=== PATIENT | female | born 1965 | race Caucasian/White ===

== ENCOUNTER 2020-07-29 16:38 | Emergency (ER) | payer MEDICARE, OTHER, SELFPAY ==
[2020-07-29 16:39] VITALS: BP 109/89; PULSE 98; RESP 18; TEMP 36.7; O2SAT 96; BMI 27.1
--- NOTE | 2020-07-29 16:46 | XRR_ITS ---
PROCEDURE INFORMATION: Exam: XR Left Wrist Exam date and time: 07/29/2020 5:21 PM Age: 54 years old Clinical indication: Injury or trauma; Fall; Initial encounter; Blunt trauma (contusions or hematomas); Wrist; Left; Injury date: 07/29/20 TECHNIQUE: Imaging protocol: XR Left wrist. Views: Frontal, lateral, and oblique views. COMPARISON: No relevant prior studies available. FINDINGS: Bones/joints: Mildly distracted, slightly medially displaced ulnar styloid fracture. Transverse fracture of the distal radial metaphysis, with longitudinal extensions into the central/dorsal articular surface, with maintenance of joint congruity. Posterior angulation, displacement and impaction of the dominant distal radial articular fragments. There is approximately 23 degrees of posterior angulation of the distal radial articular surface. Soft tissues: Soft tissue swelling. XR/XR wrist LT min 3V* [id number] IMPRESSION: 1. Comminuted intra-articular Colles fracture of the distal radius. 2. Acute ulnar styloid fracture.
--- NOTE | 2020-07-29 16:48 | W.ED.EXTPRO ---
Documented by User: RUIZ Cordero 07/30/20 06:55 HPI - Extremity Problem General: Chief complaint: Extremity Injury, Upper Stated complaint: WRIST PAIN, DEFORMITY Time Seen by Provider: 07/29/20 16:45 History of Present Illness: HPI Narrative: Patient arrived via ambulance with complaint of broken left arm.Leg pain patient to take Patient states that she had shot arm feels she is running backwards and fell backwards her arm extended felt a break to her left arm MD Complaint: extremity pain Onset (ago): minute(s) Pain Consistency: constant Location: left and upper extremity Severity scale (1-10): 6 Quality: aching Radiation: none Relieving factors: cold therapy and immobilization Exacerbating factors: range of motion Associated symptoms: Reports no associated symptoms; Deny chest pain, fever(s) or rash Review of Systems Const: Denies: fever(s), chills or body aches Eyes: Denies: change in vision or blurry vision ENMT: Denies: throat pain or nasal congestion Card: Denies: chest pain or dyspnea on exertion Resp: Denies: dyspnea, productive cough or non-productive cough GI: Denies: abdominal pain, nausea or vomiting Musc: Reports: extremity pain (Has obvious deformity to left wrist patient complains about pain from a fall today) Skin/Breast: Denies: rash Neuro: Denies: headache(s) Psych: Denies: anxiety or depression Adrián/Lymph: Denies: easy bruising PFS ED PFSH: Medical History Anxiety disorder GERD (gastroesophageal reflux disease) History of nodular lymphoma Seasonal allergies Surgical History History of appendectomy History of back surgery History of basal cell carcinoma excision Right side of the head at [facility] 2020 History of tubal ligation Family History Unknown Family history unknown She does not know any family history Social History Smoking and tobacco status: former smoker Second hand smoke exposure: No Smoking risk assessment/counseling performed?: No Alcohol intake: never Desire information about alcohol rehabilitation?: No Counseling given: No Desire information about substance/drug rehabilitation?: No Counseling given: No Caregiver/support person: No Lives independently: Yes Household members: spouse Marital status: Current occupational status: disabled History of recent travel: No Current gender identity: Female Physical Exam Const: COMMON NORMALS: no acute distress Neck/C-Spine: COMMON NORMALS: no JVD Cardio: COMMON NORMALS: no JVD, regular rate and regular rhythm RATE: regular rate RHYTHM: regular rhythm Extremity: LEFT UPPER EXTREMITY: Yes wrist (Patient has deformity to distal forearm left wrist area. Mild swelling noted neurovascular status intact.) Course Vital Signs: Vital signs: Vital Signs Temperature 98.1 F 07/29/20 16:39 Pulse Rate 73 07/29/20 19:33 Respiratory Rate 16 07/29/20 19:33 Blood Pressure 152/89 07/29/20 19:33 Pulse Oximetry 95 07/29/20 19:33 Discharge Plan Discharge Patient Disposition: Home Clinical Impression: Left wrist fracture Qualifiers: Encounter type: initial encounter Fracture type: closed Qualified Code(s): S62.102A - Fracture of unspecified carpal bone, left wrist, initial encounter for closed fracture Condition: Stable Prescriptions: No Action oxycodone-acetaminophen [Percocet] 5-325 mg tablet 1 tab PO Q4H PRN (Reason: pain) 7 Days Qty: 40 RF: 0 cannabis See Rx Instructions .ROUTE .COMPLEX PRN (Reason: Pain) RF: 0 ascorbic acid (vitamin C) [Vitamin C] 250 mg Tablet 250 mg PO BID RF: 0 turmeric 400 mg Capsule 400 mg PO DAILY RF: 0 Discharge Orders: Discharge Order (Routine); Ordered 07/29/20 Ordered By: Alejandro Saavedra Referrals: Bettina Pink, [facility]ATOR[facility] [Primary Care Provider] - Discharge Diet: Regular Discharge Activity: Limit activity as instructed Patient Instructions: Wrist Fracture in Adults (ED) Activity Restrictions/Additional Instructions: Follow-up with medical provider as directed. Case management should be contacting you in the next several days to set up an appointment with Orthopedic Doctor. take medications as prescribed. You can also take ibuprofen per bottle instructions in between doses of hydrocodone to help with pain. Keep splint on and dry. Limit activity with left arm. Return to the ER or your medical provider if condition worsens. Please read and understand discharge instructions. If any questions, please ask. Discharge Date/Time: 07/29/20 19:35 Coding Level of Care Code ED Veterinarian for Chg Fwd Exam Expanded Problem Focused Documented by User: TAMIA James 07/29/20 19:32 HPI - Extremity Problem General: Chief complaint: Extremity Injury, Upper Stated complaint: WRIST PAIN, DEFORMITY Time Seen by Provider: 07/29/20 16:45 PFSH ED PFSH: Medical History Anxiety disorder GERD (gastroesophageal reflux disease) History of nodular lymphoma Seasonal allergies Surgical History History of appendectomy History of back surgery History of basal cell carcinoma excision Right side of the head at [facility] 2020 History of tubal ligation Family History Unknown Family history unknown She does not know any family history Social History Smoking and tobacco status: former smoker Second hand smoke exposure: No Smoking risk assessment/counseling performed?: No Alcohol intake: never Desire information about alcohol rehabilitation?: No Counseling given: No Desire information about substance/drug rehabilitation?: No Counseling given: No Caregiver/support person: No Lives independently: Yes Household members: spouse Marital status: Current occupational status: disabled History of recent travel: No Current gender identity: Female Physical Exam Extremity: NARRATIVE EXTREMITY EXAM: Left wrist radial pulse 2+, cap refill normal and sensation to fingers intact. Course ED course: Dr. Naqvi reviewed x-rays. I came in and assisted her in performing a hematoma block on patient's left wrist and then was reduced and sugar tong splint was applied. Post reduction x-rays showed improvement in bone alignment. Vital Signs: Vital signs: Vital Signs Temperature 98.1 F 07/29/20 16:39 Pulse Rate 73 07/29/20 19:33 Respiratory Rate 16 07/29/20 19:33 Blood Pressure 152/89 07/29/20 19:33 Pulse Oximetry 95 07/29/20 19:33 MDM - Extremity (Nontraumatic) MDM Narrative: Medical decision making narrative: Patient is a 54-year-old female who comes to the ED with left wrist injury and pain. Physical exam shows visible deformity to distal left forearm. Neurovascular intact radial pulse 2+. X-ray of left wrist showed distal ulnar and radial head fractures with displacement. I talked with Dr. Naqvi about x-rays and she reviewed them and wanted to perform a hematoma block reduce fractures. I came in and assisted her in performing a hematoma block on patient's left wrist and then was reduced and sugar tong splint was applied. Post reduction x-rays showed improvement in bone alignment. Patient was diagnosed with left wrist fracture and given a prescription for hydrocodone for pain. A referral to Ortho ordered with case management. Instructed patient that case management will contact her in the next several days to set up an appointment with Ortho. Instructed her to limit activity with left arm and to keep splint on and dry. Return to ED precautions given. Patient understood and agreed with plan. Imaging Data^: Xray Ortho: Attestation: I personally reviewed and interpreted this imaging study as follows: My impression: Left wrist x-ray?distal ulna and radial head fractures with some displacement. pending final radiology report. Post reduction left wrist x-ray was performed and did show improvement in bone alignment. Discharge Plan Discharge Patient Disposition: Home Clinical Impression: Left wrist fracture Qualifiers: Encounter type: initial encounter Fracture type: closed Qualified Code(s): S62.102A - Fracture of unspecified carpal bone, left wrist, initial encounter for closed fracture Condition: Stable Prescriptions: No Action oxycodone-acetaminophen [Percocet] 5-325 mg tablet 1 tab PO Q4H PRN (Reason: pain) 7 Days Qty: 40 RF: 0 cannabis See Rx Instructions .ROUTE .COMPLEX PRN (Reason: Pain) RF: 0 ascorbic acid (vitamin C) [Vitamin C] 250 mg Tablet 250 mg PO BID RF: 0 turmeric 400 mg Capsule 400 mg PO DAILY RF: 0 Discharge Orders: Discharge Order (Routine); Ordered 07/29/20 Ordered By: Alejandro Saavedra Referrals: Bettina Pink, [facility]PERATOR[facility] [Primary Care Provider] - Discharge Diet: Regular Discharge Activity: Limit activity as instructed Patient Instructions: Wrist Fracture in Adults (ED) Activity Restrictions/Additional Instructions: Follow-up with medical provider as directed. Case management should be contacting you in the next several days to set up an appointment with Orthopedic Doctor. take medications as prescribed. You can also take ibuprofen per bottle instructions in between doses of hydrocodone to help with pain. Keep splint on and dry. Limit activity with left arm. Return to the ER or your medical provider if condition worsens. Please read and understand discharge instructions. If any questions, please ask. Discharge Date/Time: 07/29/20 19:35 Coding Level of Care Code ED Veterinarian for Chg Fwd Exam Expanded Problem Focused Documented by User: Shama Naqvi MD 08/04/20 19:02 HPI - Extremity Problem General: Chief complaint: Extremity Injury, Upper Stated complaint: WRIST PAIN, DEFORMITY Time Seen by Provider: 07/29/20 16:45 [facility]: Medical History Anxiety disorder GERD (gastroesophageal reflux disease) History of nodular lymphoma Seasonal allergies Surgical History History of appendectomy History of back surgery History of basal cell carcinoma excision Right side of the head at [facility] 2020 History of tubal ligation Family History Unknown Family history unknown She does not know any family history Social History Smoking and tobacco status: former smoker Second hand smoke exposure: No Smoking risk assessment/counseling performed?: No Alcohol intake: never Desire information about alcohol rehabilitation?: No Counseling given: No Desire information about substance/drug rehabilitation?: No Counseling given: No Caregiver/support person: No Lives independently: Yes Household members: spouse Marital status: Current occupational status: disabled History of recent travel: No Current gender identity: Female Procedures Orthopedic Fracture Reduction Fracture #1: Time Out Performed: Yes Side: left Fracture Reduction Location: radius Analgesia: hematoma block Technique: direct manipulation Post Reduction X-rays Demonstrate: acceptable reduction Post-reduction neuro exam: intact Post-reduction vascular exam: intact Splint Applied: Yes Patient Tolerated Procedure: well Course Vital Signs: Vital signs: Vital Signs Temperature 98.1 F 07/29/20 16:39 Pulse Rate 73 07/29/20 19:33 Respiratory Rate 16 07/29/20 19:33 Blood Pressure 152/89 07/29/20 19:33 Pulse Oximetry 95 07/29/20 19:33 Discharge Plan Discharge Patient Disposition: Home Clinical Impression: Left wrist fracture Qualifiers: Encounter type: initial encounter Fracture type: closed Qualified Code(s): S62.102A - Fracture of unspecified carpal bone, left wrist, initial encounter for closed fracture Condition: Stable Prescriptions: No Action oxycodone-acetaminophen [Percocet] 5-325 mg tablet 1 tab PO Q4H PRN (Reason: pain) 7 Days Qty: 40 RF: 0 cannabis See Rx Instructions .ROUTE .COMPLEX PRN (Reason: Pain) RF: 0 ascorbic acid (vitamin C) [Vitamin C] 250 mg Tablet 250 mg PO BID RF: 0 turmeric 400 mg Capsule 400 mg PO DAILY RF: 0 Discharge Orders: Discharge Order (Routine); Ordered 07/29/20 Ordered By: Alejandro Saavedra Referrals: Bettina Pink, [facility]SF[facility] [employer] OPERATOR[facility] [Primary Care Provider] - Discharge Diet: Regular Discharge Activity: Limit activity as instructed Patient Instructions: Wrist Fracture in Adults (ED) Activity Restrictions/Additional Instructions: Follow-up with medical provider as directed. Case management should be contacting you in the next several days to set up an appointment with Orthopedic Doctor. take medications as prescribed. You can also take ibuprofen per bottle instructions in between doses of hydrocodone to help with pain. Keep splint on and dry. Limit activity with left arm. Return to the ER or your medical provider if condition worsens. Please read and understand discharge instructions. If any questions, please ask. Discharge Date/Time: 07/29/20 19:35 Coding Level of Care Code ED Veterinarian for Lisa Fwlinda Exam Expanded Problem Focused
[2020-07-29] MEDS: ketorolac 60 mg/2 mL INJ IM (17:12)
[2020-07-29 17:47] VITALS: BP 109/89; PULSE 91; RESP 18; O2SAT 96
[2020-07-29] MEDS: HYDROcodone-acetaminophen 7.5-325 mg Tablet 1 TAB PO ×2 (18:33→19:30)
[2020-07-29] MEDS: diphenhydrAMINE 25 mg Capsule PO (18:33)
--- NOTE | 2020-07-29 18:48 | XRR_ITS ---
PROCEDURE INFORMATION: Exam: XR Left Wrist Exam date and time: 07/29/2020 7:16 PM Age: 54 years old Clinical indication: Abnormal findings; Abnormal imaging study of the limbs; Left wrist; Additional info: Post reduction and splint imaging TECHNIQUE: Imaging protocol: XR Left wrist. Views: Frontal, lateral, and oblique views. COMPARISON: CR XR wrist LT min 3V* [id number] 07/29/2020 5:10 PM FINDINGS: Bones/joints: Mild residual distal radial lateral impaction, otherwise reduction of posterior displacement and significant improvement and posterior angulation status post close reduction. Stable appearance of ulnar styloid fracture. Scapholunate interval more apparent than on the prior study, measures up to 3.0 mm. Soft tissues: Normal. Other findings: The study is performed through a fiberglass splint which reduces the image detail. XR/XR wrist LT min 3V* [id number] IMPRESSION: 1. Significant improvement in alignment of distal radial intra-articular comminuted Colles fracture. 2. Stable appearance of ulnar styloid fracture. 3. Scapholunate ligamentous injury, uncertain acuity.
[2020-07-29] MEDS: lidocaine 1% INJ 20 mL INJECTION (18:54)
--- NOTE | 2020-07-29 19:17 | PC.NURSE ---
report received from светлана hernandez assumed care.
[2020-07-29 19:33] VITALS: BP 152/89; PULSE 73; RESP 16; O2SAT 95
--- NOTE | 2020-07-30 09:52 | DCPLANNER ---
manager social work had message to schedule a a follow up appointment for patient with ortho. manager social work called the ortho clinic, spoke with Janiya, gave clinic patients information. manager social work was told that patients information would be printed and reviewed. Clinic will call patient with appointment information.
--- NOTE | 2020-07-31 07:34 | DCPLANNER ---
Patient had an appointment scheduled for 07.30.20 with ortho - patient attended appointment.
== END 2020-07-29 19:35 | disposition home or self-care (01) ==
PROVIDERS: Emergency Provider Physician Assistant; PCP Nurse Practitioner
DX: S52.532A Colles' fracture of left radius, initial encounter for closed fracture (principal); S52.612A Displaced fracture of left ulna styloid process, initial encounter for closed fracture; W19.XXXA Unspecified fall, initial encounter; Z87.891 Personal history of nicotine dependence
CPT/HCPCS: 12345; 25605; 73110; 96372; 99283; J1885

== ENCOUNTER → 2020-07-31 14:22 | Outpatient (BNVA) | payer MEDICARE, OTHER, SELFPAY | PROVIDERS: PCP Nurse Practitioner; Visit Provider Orthopaedic Surgery | DX: Z20.828 Contact with and (suspected) exposure to other viral communicable diseases (principal) | CPT/HCPCS: 87635 ==

== ENCOUNTER 2020-08-05 05:41 | Day surgery (SDC) | payer MEDICARE, OTHER, SELFPAY ==
[2020-08-04 12:24] VITALS: BMI 27.1
[2020-08-05] VITALS (8 sets, daily range): BP systolic 126–162; BP diastolic 77–90; PULSE 54–111; RESP 16–25; TEMP 36.4–36.6; O2SAT 97–100
--- NOTE | 2020-08-05 | SCC_ITS ---
Procedure Done: Open reduction internal fixation left distal radius intra- articular fracture, 3 part 36.6 seconds of fluoroscopic guidance, for a cumulative dose of 0.25 mGy, was provided to Dr. Camacho by the radiology department. C-arm images of the LEFT wrist were saved for the patient's permanent record. [facility]
--- NOTE | 2020-08-05 | XR_ITS ---
WS: [id number] C-ARM RADIOGRAPHS LEFT WRIST; 3 IMAGES HISTORY: OR PICS COMPARISON: 07/29/2020 Intraoperative plate and screw fixation distal radial fracture. Avulsion fracture through the radial styloid is not fixated. Radial metaphyseal fracture has been fixated in good alignment. Avulsion frac ture through the base of the ulnar styloid. XR/XR wrist LT 2V [id number] IMPRESSION: Intraoperative fixation distal radial metaphyseal fracture.
[2020-08-05] MEDS: fentaNYL 50 mcg/mL INJ 2mL 100 MCG IVP (06:40)
--- NOTE | 2020-08-05 06:45 | P.ANESASSM_ITS ---
Pre-Anesthetic Assessment Pre-Anesthetic Assessment: Height/Weight: Height 1.63 m Weight 71.668 kg Temp Pulse Resp BP Pulse Ox 97.6 F 84 18 162/90 99 08/05/20 06:08 08/05/20 06:08 08/05/20 06:08 08/05/20 06:08 08/05/20 06:08 Preop Diagnosis: Left distal radius fracture Proposed Procedure: Operation Date: 08/05/20 07:00 Proposed Procedures p ORIF left distal radius fracture 94970 S52.502A(Left) - Wero Camacho MD Familial anesthetic complications: Hx ponv Was Beta Leigha taken within 24 hours: N/A Last intake: Intake Last Liquid Date 08/05/20 Last Liquid Time 04:45 Last Solid Date 08/04/20 Last Solid Time 19:30 Social: Social History: No alcohol Comment: former tobacco smoker, smokes Marijuana Exam: Pre-Anes Outpt Exam: alert, oriented x 3, clear to auscultation bilaterally and regular rate & rhythm Airway: Cervical ROM: WNL MP: 3 Dentition: Other (missing teeth and poor dentition) Anesthetic Plan: ASA status: 1 Anesthesia: General and Regional (specify below) Risk of > 500 ml blood loss (7ml/kg in children): No PFSH Anesthesia PFSH: Medical History Anxiety disorder GERD (gastroesophageal reflux disease) History of nodular lymphoma Seasonal allergies Surgical History History of appendectomy History of back surgery History of basal cell carcinoma excision Right side of the head at [facility] 2020 History of tubal ligation Family History Unknown Family history unknown She does not know any family history Social History Smoking and tobacco status: former smoker Second hand smoke exposure: No Smoking risk assessment/counseling performed?: No Alcohol intake: never Desire information about alcohol rehabilitation?: No Counseling given: No Desire information about substance/drug rehabilitation?: No Counseling given: No Caregiver/support person: No Lives independently: Yes Household members: spouse Marital status: Current occupational status: disabled History of recent travel: No Current gender identity: Female Female Reproductive History: Date of last menstrual period: 07/25/12 Data Anesthesia Cardiac Studies: No Data to Display
--- NOTE | 2020-08-05 06:46 | ANES.PROC ---
Anesthesia Procedures Procedure/Date: 08/05/20 Nerve Block ^: Nerve Block 1: Main Anesthesia: general anesthesia Time Out Performed: Yes Consent: requested by attending/covering physician, from patient, from other, risks and benefits reviewed and patient agrees to proceed Nerve block location: axillary (+ musculocutaneous) Anesthesia monitors applied: pulse oximetry, EKG, BP cuff and oxygen Anesthetic Used: with decadron (4 mg) Amount of anesthesia used (mL): 30 Ultrasound used to: recognize landmarks Nerve Stimulator Used?: No Interscalene/Femoral BLK: 2 stimuplex 22 g needle used for position and inplane approach, visualize local anesthetic spread and no vascular puncture identified Injection: neg aspiration of heme Patient Tolerated Procedure: well and no complications Complications: none Additional Comments: Left-sided block
[2020-08-05] MEDS: sodium chloride 0.9% 1,000 ML 30 ML IV (06:47)
[2020-08-05] MEDS: midazolam 1 mg/mL INJ 5 ML 5 MG IVP (06:53)
[2020-08-05] MEDS: scopolamine 1.5 Patch 1 PATCH TRANSDERMA (06:55)
--- NOTE | 2020-08-05 07:01 | W.PM.OPSUD ---
Surgery/Procedure H&P Update DATE OF PROCEDURE: August 05, 2020 DATE H&P PERFORMED: 07/30/20 PREOP DIAGNOSIS: Left distal radius fracture PLANNED PROCEDURE: Operation Date: 08/05/20 07:00 Proposed Procedures p ORIF left distal radius fracture 00091 S52.502A(Left) - Wero Camacho MD
--- NOTE | 2020-08-05 08:16 | PM.OP ---
Operative Report Date of procedure: August 05, 2020 Pre-op Diagnosis: Left distal radius fracture Post-op diagnosis: same Post-op Findings: Intra-articular fracture of left distal Procedure Done: Open reduction internal fixation left distal radius intra-articular fracture, 3 part Implants: [place] Variax short narrow plate Pathology: none sent Surgeon: Wero Camacho Anesthesia: General and Nerve Block (Axillary block) Estimated blood loss (mL): 25 Tourniquet time (min): 26 Complications: None Findings: Patient had a 3 part intra-articular fracture of the left distal radius consisting of radial styloid and ulnar articular fragment as well as the shaft. Condition: stable Disposition: PACU Procedure: Initial attempts were made at closed reduction however a satisfactory stable reduction could not be obtained. A decision was made to proceed with open reduction internal fixation.A 5 cm long incision was made along over the flexor carpi radialis tendon. Dissection was carried down through the tendon sheath. Dissection was carried down bluntly to the pronator quadratus. The pronator quadratus was elevated off of the distal radius leaving a cuff for later repair. Closed reduction was accomplished of the distal radius. A [place] Variax short narrow plate was applied. It was fixed distally with 5 locking screws and proximally with locking nonlocking bicortical screws. Intraoperative imaging showed excellent position of the hardware. The wound was irrigated with saline. The pronator quadratus was reapproximated with 2-0 Vicryl. Subcutaneous tissues were closed with 2-0 Vicryl. The skin was closed with skin patria. Sterile dressings were applied. The patient was taken to outpatient surgery in stable condition.
--- NOTE | 2020-08-05 08:26 | SUR.PHASEI ---
pt awake alert talkative on RA trial, vss lt arm in splint and soft dressing D/I distal fingers pink warm ,
--- NOTE | 2020-08-05 09:30 | ANE.PACU2 ---
Inpatient post-anesthesia follow up: Airway intact: Yes Vital signs: Temperature 97.9 F Pulse Rate 54 Respiratory Rate 16 Blood Pressure 134/88 Pulse Oximetry 98 Oxygen Delivery Me thod Room Air Oxygen Flow Rate 8 Fraction of Inspir ed Oxygen Hydration adequate: Yes Nausea and vomiting: No Pain level: 1 Mental status: Baseline
== END 2020-08-05 09:30 | disposition home or self-care (01) ==
PROVIDERS: PCP Orthopaedic Surgery Pediatric Orthopaedic Surgery; Visit Provider Orthopaedic Surgery
PROC: (CPT 25609; principal; 2020-08-05 07:00)
DX: S52.572A Other intraarticular fracture of lower end of left radius, initial encounter for closed fracture (principal); X58.XXXA Exposure to other specified factors, initial encounter
CPT/HCPCS: 25609; 12345; 73100; 76000; 96374; 96375; C1713; J0131; J0690; J1100; J1580; J2250; J2405; J2704; J2710; J2795; J3010; J3490; J7030

== ENCOUNTER 2020-08-27 06:00 | Outpatient (RCR) | payer MEDICARE, OTHER, SELFPAY | END 2020-09-06 23:59 | disposition home or self-care (01) | LOC: TOT 06:00 | PROVIDERS: PCP Nurse Practitioner; Referring Provider Orthopaedic Surgery; Visit Provider Orthopaedic Surgery | DX: Z47.89 Encounter for other orthopedic aftercare (principal) | CPT/HCPCS: 97110; 97166; L3908 ==

== ENCOUNTER → 2020-09-09 14:00 | Outpatient (BNVA) | payer MEDICARE, OTHER, SELFPAY | PROVIDERS: PCP Nurse Practitioner; Visit Provider Orthopaedic Surgery | DX: S52.502A Unspecified fracture of the lower end of left radius, initial encounter for closed fracture (principal); Z48.89 Encounter for other specified surgical aftercare | CPT/HCPCS: 73110 ==

== ENCOUNTER 2020-10-29 06:00 | Outpatient (RCR) | payer MEDICARE, OTHER, SELFPAY | END 2020-11-06 23:59 | disposition home or self-care (01) | LOC: TOT 06:00 | PROVIDERS: PCP Family Medicine; Referring Provider Orthopaedic Surgery; Visit Provider Orthopaedic Surgery | DX: M25.532 Pain in left wrist (principal); M25.642 Stiffness of left hand, not elsewhere classified | CPT/HCPCS: 97018; 97110; 97140; 97166 ==

== ENCOUNTER 2020-11-07 06:00 | Outpatient (RCR) | payer MEDICARE, OTHER, SELFPAY | END 2020-12-07 23:59 | disposition home or self-care (01) | LOC: TOT 06:00 | PROVIDERS: PCP Family Medicine; Referring Provider Orthopaedic Surgery; Visit Provider Orthopaedic Surgery | DX: M25.532 Pain in left wrist (principal); M25.642 Stiffness of left hand, not elsewhere classified | CPT/HCPCS: 97018; 97110; 97140; 97530 ==

== ENCOUNTER 2020-12-05 06:00 | Outpatient (RCR) | payer MEDICARE, OTHER, SELFPAY | END 2020-12-07 23:59 | disposition home or self-care (01) | LOC: TOT 06:00 | PROVIDERS: PCP Family Medicine; Referring Provider Orthopaedic Surgery Hand Surgery; Visit Provider Orthopaedic Surgery Hand Surgery | DX: M25.532 Pain in left wrist (principal) | CPT/HCPCS: 97110; 97140; 97165 ==

== ENCOUNTER 2020-12-08 06:00 | Outpatient (RCR) | payer MEDICARE, OTHER, SELFPAY | END 2021-01-04 23:59 | disposition home or self-care (01) | LOC: TOT 06:00 | PROVIDERS: PCP Family Medicine; Referring Provider Orthopaedic Surgery; Visit Provider Orthopaedic Surgery | DX: M25.532 Pain in left wrist (principal); M25.642 Stiffness of left hand, not elsewhere classified | CPT/HCPCS: 97018; 97022; 97035; 97110; 97140 ==

== ENCOUNTER 2020-12-08 06:00 | Outpatient (RCR) | payer MEDICARE, OTHER, SELFPAY | END 2021-01-04 23:59 | disposition home or self-care (01) | LOC: TOT 06:00 | PROVIDERS: PCP Family Medicine; Referring Provider Orthopaedic Surgery Hand Surgery; Visit Provider Orthopaedic Surgery Hand Surgery | DX: M25.532 Pain in left wrist (principal); M25.642 Stiffness of left hand, not elsewhere classified | CPT/HCPCS: 97035; 97110; 97140 ==

== ENCOUNTER 2021-01-05 06:00 | Outpatient (RCR) | payer MEDICARE, OTHER, SELFPAY | END 2021-02-04 23:59 | disposition home or self-care (01) | LOC: TOT 06:00 | PROVIDERS: PCP Family Medicine; Referring Provider Orthopaedic Surgery; Visit Provider Orthopaedic Surgery | DX: M25.512 Pain in left shoulder (principal) | CPT/HCPCS: 97018; 97110 ==

== ENCOUNTER 2021-01-05 06:00 | Outpatient (RCR) | payer MEDICARE, OTHER, SELFPAY | END 2021-02-03 23:00 | disposition home or self-care (01) | LOC: TOT 06:00 | PROVIDERS: PCP Nurse Practitioner; Referring Provider Orthopaedic Surgery Hand Surgery; Visit Provider Orthopaedic Surgery Hand Surgery | DX: S52.502D Unspecified fracture of the lower end of left radius, subsequent encounter for closed fracture with routine healing (principal); X58.XXXD Exposure to other specified factors, subsequent encounter | CPT/HCPCS: 97035; 97110; 97140 ==

== ENCOUNTER 2021-02-06 06:00 | Outpatient (RCR) | payer MEDICARE, OTHER, SELFPAY | END 2021-03-06 06:00 | disposition home or self-care (01) | LOC: TOT 06:00 | PROVIDERS: PCP Nurse Practitioner; Referring Provider Physician Assistant; Visit Provider Physician Assistant | DX: S52.502D Unspecified fracture of the lower end of left radius, subsequent encounter for closed fracture with routine healing (principal); X58.XXXD Exposure to other specified factors, subsequent encounter | CPT/HCPCS: 97035; 97110; 97166; 97530 ==

== ENCOUNTER 2021-03-07 06:00 | Outpatient (RCR) | payer MEDICARE, OTHER, SELFPAY | END 2021-04-06 23:59 | disposition home or self-care (01) | LOC: TOT 06:00 | PROVIDERS: PCP Nurse Practitioner; Referring Provider Physician Assistant; Visit Provider Physician Assistant | DX: S52.502D Unspecified fracture of the lower end of left radius, subsequent encounter for closed fracture with routine healing (principal); X58.XXXD Exposure to other specified factors, subsequent encounter | CPT/HCPCS: 97110; 97140 ==

== ENCOUNTER 2021-04-07 06:00 | Outpatient (RCR) | payer MEDICARE, OTHER, SELFPAY | END 2021-05-06 23:59 | disposition home or self-care (01) | LOC: TOT 06:00 | PROVIDERS: PCP Nurse Practitioner; Referring Provider Physician Assistant; Visit Provider Physician Assistant | DX: S52.502D Unspecified fracture of the lower end of left radius, subsequent encounter for closed fracture with routine healing (principal); X58.XXXD Exposure to other specified factors, subsequent encounter | CPT/HCPCS: 97110; 97530 ==

== ENCOUNTER 2021-05-07 06:00 | Outpatient (RCR) | payer MEDICARE, OTHER, SELFPAY | END 2021-06-06 23:59 | disposition home or self-care (01) | LOC: TOT 06:00 | PROVIDERS: PCP Nurse Practitioner; Referring Provider Physician Assistant; Visit Provider Physician Assistant | DX: S52.502D Unspecified fracture of the lower end of left radius, subsequent encounter for closed fracture with routine healing (principal); X58.XXXD Exposure to other specified factors, subsequent encounter | CPT/HCPCS: 97110 ==

== ENCOUNTER → 2021-06-01 16:37 | Outpatient (BNVA) | payer MEDICARE, OTHER, SELFPAY | PROVIDERS: PCP Nurse Practitioner; Visit Provider Family Medicine | DX: S82.891A Other fracture of right lower leg, initial encounter for closed fracture (principal); W18.42XA Slipping, tripping and stumbling without falling due to stepping into hole or opening, initial encounter; M25.571 Pain in right ankle and joints of right foot | CPT/HCPCS: 73610 ==

== ENCOUNTER → 2022-03-29 16:52 | Outpatient (BNVA) | payer MEDICARE, OTHER, SELFPAY | PROVIDERS: PCP Nurse Practitioner; Visit Provider Nurse Practitioner | DX: Z12.4 Encounter for screening for malignant neoplasm of cervix (principal); N95.2 Postmenopausal atrophic vaginitis | CPT/HCPCS: 88175 ==

== ENCOUNTER → 2022-05-28 11:39 | Outpatient (BNVA) | payer MEDICARE, OTHER, SELFPAY | PROVIDERS: PCP Nurse Practitioner; Visit Provider Nurse Practitioner Family | DX: Z87.891 Personal history of nicotine dependence (principal); Z79.899 Other long term (current) drug therapy; Z78.0 Asymptomatic menopausal state; Z13.220 Encounter for screening for lipoid disorders; F41.9 Anxiety disorder, unspecified | CPT/HCPCS: 71046; 80053; 80061; 82306; 84443 ==